=== PATIENT | male | born 1960 | race Caucasian/White ===

== ENCOUNTER 2018-05-04 06:42 | Inpatient (IN) | payer OTHER ==
--- NOTE | 2018-04-23 22:09 | HP ---
HISTORY AND PHYSICAL: DATE OF SURGERY: 05/04/18 DATE OF OFFICE VISIT: 04/21/18 SURGEON: Nan Torres MD * (DICTATED BY SARI HART) PROCEDURE: Left total hip arthroplasty. CHIEF COMPLAINT: Left hip pain. HISTORY OF PRESENT ILLNESS: Mr. Hebert is a 57-year-old gentleman with continued complaints of left hip pain. He has failed conservative management and elected to proceed with a left total hip arthroplasty, which is scheduled for 05/04/18. PAST MEDICAL HISTORY: Hypertension, history of FL in 2009, stent placement, and high cholesterol. PAST SURGICAL HISTORY: Cardiac catheterization with stent placement, tonsillectomy, deviated septum surgery, ORIF of the right ankle, right knee ACL reconstruction, right shoulder surgery, and left total knee arthroplasty. CURRENT MEDICATIONS: 1. Oxycodone 5 mg. 2. Tramadol 50 mg. 3. Metoprolol 200 mg. 4. Vitamin C. 5. Triamterene. 6. Clopidogrel 75 mg daily. 7. Rosuvastatin 10 mg daily. 8. Amitriptyline 50 mg daily. 9. Aspirin 325 daily. 10. Ibuprofen as needed. ALLERGIES: None. FAMILY HISTORY: Coronary artery disease, diabetes, and stomach cancer. SOCIAL HISTORY: He is a 57-year-old gentleman, lives with his . He quit smoking in 2006 but occasionally smokes cigars. He denies use of drugs. He uses occasional alcohol. REVIEW OF SYSTEMS: A complete 14-point of review of systems is reviewed with the patient. It was all negative. He denies history of DVT, PE, hepatitis, HIV or anesthesia problems. PHYSICAL EXAMINATION GENERAL: He is a well developed, well nourished in no acute distress. VITAL SIGNS: He stands 69 inches tall, weighs 229 pounds. His blood pressure is 126/80 and his heart rate is 90. HEENT: Normocephalic, atraumatic. NECK: Supple. No palpable lymph nodes. PULMONARY: Lungs are clear to auscultation bilaterally. CARDIO: Regular rate and rhythm. Strong S1, S2. ABDOMEN: Soft, nontender, and nondistended. NEUROLOGIC: He is alert and oriented x3. Cranial nerves II through XII are intact. MUSCULOSKELETAL: Left lower extremity, the skin is intact. There are no open wounds or abrasions. He walks with an antalgic type gait favoring his left hip. He has decreased internal and external rotation of the left hip. He has 2 + dorsalis pedis pulses. Intact sensation in his lower extremities. Muscle group strengths are intact at 5/5. ASSESSMENT AND PLAN: Mr. Hebert is a 57-year-old gentleman with end-stage osteoarthritis in the left hip. He has failed conservative management and elected to proceed with a left total hip arthroplasty. The surgery is scheduled for 05/04/[address] Torres has discussed the risks and benefits of the surgery at today's visit and all of his questions were answered. He will follow up in 2 weeks after the surgery with Dr. Torres. SARI HART [id number]/[facility] #: [id number] MTDD
[~2018-05-04 06:42] MED LIST: Buffered Lidocaine 0.9% SYRIN* 5 ML/SYR SYRINGE INTRADERM ONE
[2018-05-04] MEDS ORDERED: ceFAZolin 2 GM PREMIX (*) 2 GM/50 ML BAG IVPB ONE (07:20)
[2018-05-04] MEDS ORDERED: Midazolam* 1 MG/ML 5 ML VIAL (5 MG) ONE ×2 (09:05→10:05)
[2018-05-04] MEDS ORDERED: Bupivacaine 0.5% PF 10 ML VIAL INJ ONE (09:06)
[2018-05-04] MEDS ORDERED: fentaNYL* 50 MCG/ML 2 ML VIAL (100 MCG VIAL) ONE ×4 (09:49→14:08)
[2018-05-04] MEDS ORDERED: KETAMINE HCL* 50 MG/ML 10 ML VIAL ONE (09:52)
[2018-05-04] MEDS ORDERED: Phenylephrine IV* 40 MCG/ML 10 ML SYRINGE ONE (10:01)
[2018-05-04] MEDS ORDERED: Dexamethasone IV* 4 MG/ML 1 ML (4 MG) ONE (10:32)
--- NOTE | 2018-05-04 11:32 | RAD ---
HISTORY: LEFT TOTAL HIP REPLACEMENT COMPARISONS: September 26, 2018 VIEWS: 1, portable intraoperative view of the left hip during hip arthroplasty FINDINGS: A single portable intraoperative view of the left hip is performed during hip arthroplasty. There is a left hip arthroplasty with a temporary femoral sizing component. IMPRESSION: LIMITED PORTABLE INTRAOPERATIVE VIEW OF THE LEFT HIP DURING HIP ARTHROPLASTY.
[2018-05-04] MEDS ORDERED: oxyCODONE/Acetamin 5/325 MG* TAB PO PRN ×2 (11:40→12:19)
[2018-05-04] MEDS ORDERED: fentaNYL* 50 MCG/ML 2 ML VIAL (100 MCG VIAL) IV PRN (11:40)
[2018-05-04] MEDS ORDERED: HYDROmorphone INJ* 1 MG/ML CARPUJECT SYRINGE IV PRN (11:40)
[2018-05-04] MEDS ORDERED: HYDROcodone/ACETAMIN 5-325 MG* 1 TAB PO PRN (11:40)
[2018-05-04] MEDS ORDERED: Naloxone* 0.4 MG/ML 1 ML VIAL IV PRN (11:40)
[2018-05-04] MEDS ORDERED: Ondansetron ODT TAB* 4 MG PO PRN (11:40)
[2018-05-04] MEDS ORDERED: Ondansetron INJ* 2 MG/ML VIAL IV PRN ×2 (11:40→12:19)
[2018-05-04] MEDS ORDERED: Bisacodyl SUPP* 10 MG SUPP PR PRN (12:19)
[2018-05-04] MEDS ORDERED: diPHENhydraMINE IV* 50 MG/ML 1 ml VIAL (BENADRYL) IV PRN (12:19)
[2018-05-04] MEDS ORDERED: Acetaminophen TAB* 325 MG PO PRN (12:19)
[2018-05-04] MEDS ORDERED: Magnesium Hydroxide LIQ* 30 ML UDC PO PRN (12:19)
[2018-05-04] MEDS ORDERED: Cyclobenzaprine TAB* 10 MG PO PRN (12:19)
[2018-05-04] MEDS ORDERED: Morphine VIAL* 4 MG/ML VIAL (1 ml vial) IV PRN (12:19)
--- NOTE | 2018-05-04 12:54 | RAD ---
INDICATION: Left total hip replacement COMPARISON: February 24, 2018 TECHNIQUE: An AP view of the pelvis and AP views of the hip in neutral and abducted position were obtained FINDINGS: Bones: There are no acute bony findings. Joint spaces: The right hip joint space is preserved. There is left hip arthroplasty. The prosthesis appears normally seated SI joints/symphysis: The SI joints and symphysis are intact. Other: None IMPRESSION: LEFT HIP ARTHROPLASTY . NO EVIDENCE OF HARDWARE FAILURE.
[2018-05-04] MEDS ORDERED: RANITIDINE HCL 75 MG PO PRN (13:23)
[2018-05-04] MEDS: ceFAZolin 1 GM in Dextrose (*) 1 GM/50 ML BAG IVPB SCH (16:36)
[2018-05-04] MEDS: oxyCODONE/Acetamin 5/325 MG* TAB PO PRN ×2 (16:36→20:43)
[2018-05-04] MEDS ORDERED: Warfarin TAB(*) 6 MG PO ONE (17:00)
[2018-05-04] MEDS ORDERED: Ascorbic Acid TAB* 500 MG PO SCH ×2 (18:00→20:00)
[2018-05-04] MEDS ORDERED: Clopidogrel TAB* 75 MG PO SCH (18:00)
[2018-05-04] MEDS ORDERED: Metoprolol Succinate XL TAB* 100 MG PO SCH ×2 (18:00→20:00)
[2018-05-04] MEDS ORDERED: Amitriptyline TAB* 25 MG PO SCH ×2 (18:00→20:00)
[2018-05-04] MEDS ORDERED: Aspirin TAB* 325 MG PO SCH ×2 (18:00→20:00)
--- NOTE | 2018-05-04 18:11 | CONS ---
CC: Dr. Ibeth Kennedy, Dr. Torres and Dr. Marroquin. CONSULTATION REPORT: DATE OF ADMISSION: 05/04/18. DATE OF CONSULTATION: 05/04/18. PATIENT OF: Dr. Torres. REFERRED TO: Dr. Ibeth Kennedy. PRIMARY CARE PHYSICIAN: Dr. Marroquin. CHIEF COMPLAINT: Left hip pain. REASON FOR CONSULTATION: Medical co-management. HISTORY OF PRESENT ILLNESS: Mr. Hebert is a pleasant 57-year-old gentleman who has past medical histo ry significant for hypertension, coronary artery disease, with a history of IL back in 2009 for which he is status post cardiac catheterization with stent placement. He also has history of high cholest jay, and osteoarthritis, who was admitted earlier today for a left total hip arthroplasty. The charlotte ent has been having issues with osteoarthritis for years. He had multiple orthopedic procedures incl uding right knee ACL reconstruction, as well as ORIF of the right ankle and right shoulder surgery. He has tried multiple conservative measures for management of his osteoarthritis that unfortunately f tam. He was found to be a good candidate for left total knee arthroplasty to be performed by Dr. Torres on a later date. We were asked to see the patient for medical co-management in the immediate p ostoperative period, given his history of hypertension as well as coronary artery disease and previou s IL with stent placement. The patient himself reports doing very well after surgery. He denies any chest pain, palpitation, or shortness of breath. His pain is well controlled and he denies any weak ness or numbness to his lower extremities. He has no complaints during the time of this consultation . PAST MEDICAL HISTORY: As mentioned above significant for: 1. Hypertension. 2. Coronary artery disease with history of IL back in 2009. 3. He also has history of GERD. 4. Hyperlipidemia. 5. Osteoarthritis. PAST SURGICAL HISTORY: Significant for: 1. Cardiac catheterization with stent placement back in 2009, after which he has been chronically on aspirin and Plavix. 2. Tonsillectomy in childhood. 3. Deviated septum surgery. 4. ORIF of the right ankle. 5. Right knee ACL reconstruction. 6. Right shoulder surgery. 7. Left total knee arthroplasty. CURRENT MEDICATIONS: His medications at home includes: 1. Amitriptyline 50 mg p.o. q. p.m. 2. Vitamin C tablets 500 mg p.o. q. p.m. 3. Aspirin 325 mg p.o. q. p.m. 4. Plavix 75 mg p.o. q. p.m. 5. Docusate sodium stool softener 1 mg p.o. b.i.d. as needed for constipation. 6. Ibuprofen 200 mg p.o. daily. 7. Metoprolol succinate extended release 200 mg p.o. q. p.m. 8. Roxicodone 5 mg p.o. daily. 9. Zantac 75 mg p.o. daily. 10. Crestor 10 mg p.o. q. p.m. 11. Ultram 50 mg 1 tablet p.o. q. 6 hours as needed for pain. 12. Dyazide 37.5/25 mg 1 tablet p.o. q. p.m. ALLERGIES: He is allergic to SIMVASTATIN. FAMILY HISTORY: Significant for diabetes and coronary artery disease on both maternal and paternal s ides. He also has a paternal grandmother with history of stomach cancer. SOCIAL HISTORY: The patient is a former smoker, who quit back in 2006, occasionally he smokes cigars . He occasionally consumes alcohol and denies illicit drug use. His health care proxy carrier is hi s and he is a full code. REVIEW OF SYSTEMS: A complete 14-point review of systems was reviewed with the patient and they are all negative with exception of positive findings mentioned in history of present illness. PHYSICAL EXAMINATION: General: He is a pleasant healthy appearing middle aged gentleman, moderately obese, appears comfortable and in no acute distress or discomfort at the time of consultation. Peyton ls revealed blood pressure of 117/80, pulse of 57, temperature of 97.0, respirations 10, and O2 sat o f 99% on room air. HEENT: Head is normocephalic, atraumatic. Sclerae anicteric. PERRLA. EOMs inta ct. Oropharynx is pink and moist. There is no exudate. Neck: Supple. Trachea midline. No cervical adenopathy, thyromegaly or JVD. Lungs: Clear to auscultation bilaterally. Heart: Regular rate an d rhythm. Normal S1 and S2 without rubs, murmurs or gallops. Back: With normal curvature and no CV A tenderness. Abdomen: Soft, round, and obese, nontender and nondistended. There is no hernias, ma sses, or hepatosplenomegaly. Extremities: Without cyanosis, clubbing or edema. There is a well heal ed scar over both and midline bilateral knees, as well as clean, dry dressing over their lateral aspe ct of the left hip. There is no STEVE drain noted. Neurologic: Grossly intact. Handgrip was equal domi aterally. Sensation was intact throughout. Rectal exam deferred at this time. Mueller catheter noted w ith a clean, clear yellow urine in the bag. DIAGNOSTIC STUDIES/LAB DATA: The patient had laboratory workup most recently on 04/21/18,. revealing white count of 6,200, hemoglobin 15.3, hematocrit 46 and platelets of 247. His chemistry panel with sodium of 138, potassium 4.2, chloride 101, CO2 of 30. BUN 16 and creatinine of 0.9, glucose of 117. His LFT's, thyroid study and cholesterol panel were all within normal limits. ACCESSORY DIAGNOSTIC DATA: Postoperative hip x-ray was obtained at the PACU revealing left hip arthr oplasty with no evidence of hardware failure. IMPRESSION: A 57-year-old gentleman with past medical history of significant for hypertension, hyper lipidemia, coronary artery disease status post IL with catheterization and stent placement in 2009., who is postop day #0 is status post left total hip arthroplasty. ASSESSMENT AND PLAN: 1. Status post left hip arthroplasty, management the orthopedic team. I anticipate patient will star t physical therapy as soon as possible, likely tomorrow morning. He will continue PT during his hospi talization and likely to be discharged home with care management plan. He will be anticoagulated wit h Lovenox, at this time and to be bridged to Coumadin for orthopedic steam which daily INR checks. 2. Hypertension. We will continue patient on his home dose of metoprolol and he appears to be in no rmotensive at this time. 3. Hyperlipidemia. We will continue patient on his statin and avoid simvastatin since he had some a dverse reactions to the medicine. 4. Coronary artery disease. We will continue patient on his aspirin, Plavix as prescribed. He curre ntly is very stable and he experienced no symptoms of chest pain or difficulty breathing. 5. Obesity. We will provide supportive care. 6. GERD. We will continue his H2 blockers using Zantac. 7. DVT prophylaxis. Per orthopedic team and he will start Lovenox as subcu injections daily and starr l receive a dose of Coumadin 6 mg tonight, and eventually bridged to Coumadin as an outpatient once h is MRI is stable. Code status: The patient is DrRadha Full melani. I have spent approximately 55 minutes during this consultation with 50 % of this time spent in taking history and performing physical exam. I have discussed the case with my attending Dr. Kennedy who ag erich to the plans and we will followup him up accordingly with the orthopedic team. Thank you for this consultation. SARI JOHNSON [id number]/[facility] #: [id number]
[2018-05-04] MEDS: Docusate CAP* 100 MG PO SCH (20:42)
[2018-05-04] MEDS: Magnesium Hydroxide LIQ* 30 ML UDC PO SCH (20:46)
[2018-05-04] MEDS ORDERED: Atorvastatin* 20 MG TAB PO SCH (21:00)
[2018-05-05] MEDS: ceFAZolin 1 GM in Dextrose (*) 1 GM/50 ML BAG IVPB SCH ×2 (00:30→09:22)
[2018-05-05] MEDS: oxyCODONE TAB* 5 MG TAB PO PRN ×2 (00:31→07:53)
[2018-05-05] MEDS: oxyCODONE/Acetamin 5/325 MG* TAB PO PRN ×2 (04:35→11:27)
[2018-05-05 06:53] LABS: Hematocrit 34 % (42-52); Hemoglobin 11.5 g/dl (14.0-18.0); Mean Platelet Volume 8.4 um3 (7.4-10.4); Platelet Count 187 10^3/ul (150-450)
[2018-05-05 07:02] LABS: INR 1.06 (0.77-1.02)
[2018-05-05 07:12] LABS: EGFR Non-African American 101.1 (>60)
[2018-05-05] MEDS ORDERED: Famotidine TAB* 20 MG PO PRN (07:41)
[2018-05-05] MEDS: Docusate CAP* 100 MG PO SCH (08:27)
[2018-05-05] MEDS: Magnesium Hydroxide LIQ* 30 ML UDC PO SCH (08:27)
[2018-05-05] MEDS ORDERED: Vitamin THERAPEUTIC TAB PO SCH (09:00)
--- NOTE | 2018-05-05 10:28 | PN ---
Progress Note - Progress Note Date of Service: 05/05/18 SOAP: Subjective: []Patient seen at beside. He is feeling well and desires discharge home. He has met his goals with physical therapy and hip pain is very well controlled. Denies chest pain, shortness of breath, dizziness or nausea. Objective: [] Vital Signs Temp 98.3 F 05/05/18 08:01 Pulse 81 05/05/18 08:01 Resp 18 05/05/18 10:12 BP 122/67 05/05/18 08:01 Pulse Ox 99 05/05/18 08:01 Intake & Output 05/04/18 05/05/18 05/05/18 18:59 06:59 18:59 Intake Total 3650 2170 1450 Output Total 200 1375 Balance 3450 795 1450 Weight 226 lb Intake: IV Fluids 3050 970 1010 ABX - CEFAZOLIN 110 LR 3000 970 900 NS 50ML, Cefazolin 2G 50 IVPB 50 ABX - CEFAZOLIN 50 Oral 600 1150 440 Output: Mueller 200 1375 Other: # Bowel Movements 0 Estimated Blood Loss 250 Comment Laboratory Last Values Hgb 11.5 g/dl (14.0-18.0) L 05/05/18 06:19 Hct 34 % (42-52) L 05/05/18 06:19 Plt Count 187 10^3/ul (150-450) 05/05/18 06:19 MPV 8.4 um3 (7.4-10.4) 05/05/18 06:19 INR (Anticoag Therapy) 1.06 (0.77-1.02) H 05/05/18 06:19 Sodium 137 mmol/L (135-145) 05/05/18 06:19 Potassium 3.9 mmol/L (3.5-5.0) 05/05/18 06:19 Chloride 104 mmol/L (101-111) 05/05/18 06:19 Carbon Dioxide 26 mmol/L (22-32) 05/05/18 06:19 Anion Gap 7 mmol/L (2-11) 05/05/18 06:19 BUN 12 mg/dL (6-24) 05/05/18 06:19 Creatinine 0.79 mg/dL (0.67-1.17) 05/05/18 06:19 Est GFR ( Amer) 130.0 (>60) 05/05/18 06:19 Est GFR (Non-Af Amer) 101.1 (>60) 05/05/18 06:19 BUN/Creatinine Ratio 15.2 (8-20) 05/05/18 06:19 Glucose 203 mg/dL (70-100) H 05/05/18 06:19 Calcium 8.5 mg/dL (8.6-10.3) L 05/05/18 06:19 General: Well appearing, NAD LLE: Left hip dressing is clean, dry and intact. Thigh is soft. DF/PF intact. Sensation intact distally. DP 2+. Capillary refill less than two seconds distally. BL LE: Calves supple and nontender without erythema, edema or palpable cords. Assessment: []POD 1 sp left total hip arthroplasty 05/05/[address] Torres Plan: []WBAT PT/OT Restart home plavix and aspirin. Lovenox bridge to coumadin. Coumadin 6 mg today. Likely discharge home today. Will change dressing prior to DC if so
[2018-05-05] MEDS ORDERED: Enoxaparin(*) 30 MG/0.3 ML SYR SUBCUT SCH (12:00)
[2018-05-05 12:19] VITALS: BP 133/77
--- NOTE | 2018-05-05 12:59 | OP ---
DATE OF OPERATION: 05/04/18 - ROOM #342 DATE OF : 60 SURGEON: Nan Torres MD RESEARCH ASSOCIATE PROFESSOR: SARI Donald. Mr. Aguero did help throughout the procedure with preparation of the leg, wound retraction, manipulation of the hip and wound closure. ANESTHESIOLOGIST: Dr. Almendarez. ANESTHESIA: Spinal. PRE-OP DIAGNOSIS: Severe end-stage degenerative osteoarthritis of the left hip joint. POST-OP DIAGNOSIS: Severe end-stage degenerative osteoarthritis of the left hip joint. OPERATIVE PROCEDURE: Left total hip arthroplasty. COMPLICATIONS: None. ESTIMATED BLOOD LOSS: 400 cc. SPECIMEN: Femoral head and acetabular reaming sent to Pathology. HARDWARE USED: This is uncemented Yoyocard total hip arthroplasty hardware. For the cup, a Tritanium cluster hole shell 52D, a single Torx cancellous bone screw, length of 20 mm was used. For the insert, 32D Trident X3 polyethylene insert with a 10-degree inclination. For the femur, an Accolade TMZF size 3 with a 132-degree neck angle. For the head, a Biolox delta ceramic V40 femoral head 32 +0. BRIEF HISTORY/INDICATIONS: Mr. Hebert is a 57-year-old gentleman with years of increasingly severe left hip pain. He failed conservative treatment with anti- inflammatories, physical therapy, and pain pills. Radiographs showed advanced arthritis. Due to continued pain and decreased quality of life, he elected to undergo left total hip arthroplasty. Informed consent was obtained from the patient. He understood the risks of surgery included but were not limited to bleeding, infection, damage to nearby structures, continued pain, need for further surgery, intraoperative fracture, nerve palsy, hardware failure or loosening, dislocation, leg length discrepancy, stroke, heart attack, blood clot , and . He wished to proceed. INTRAOPERATIVE FINDINGS: Intraoperatively, the patient was noted to have full- thickness cartilage loss along the femoral head and acetabulum. Extensive osteophyte formation was noted in the acetabulum. DESCRIPTION OF PROCEDURE: Mr. Hebert was identified in the preanesthesia unit. His left lower extremity was marked as the correct operative side. Informed consent was signed and placed in the chart. The patient was taken to the operating room and placed under spinal anesthesia. A Mueller catheter was placed. The patient was placed in the right lateral decubitus position on the pegboard. All bony prominences were well padded. Left lower extremity was prepped and draped in the usual sterile fashion. Preop time-out was made to correctly identify the patient's side and site. Appropriate perioperative antibiotics were given within 1 hour of incision. A 12-cm posterior hip incision was made with a 10 blade and carried down to the lateral fascial layer. A new 10 blade was used to make an incision in the lateral fascial layer in line with the skin incision. A Charnley retractor was placed. The piriformis and conjoined tendons were identified. These were elevated off the posterolateral femur using electro-cautery. These were tagged with #5 Ethibond. Next, electrocautery was used to make a standard posterolateral capsular flap. This was also tagged with #5 Ethibond. The hip was carefully dislocated. Lesser troch to the center of the femoral head measured 62 mm. Oscillating saw was used to make the appropriate femoral neck cut. Femoral head was carefully removed. After appropriate placement of retractors, the acetabulum was easily visualized. Long-handled knife was used to sharply remove any remaining labrum. The acetabulum was sequentially reamed up to a size 51. A 51 reamer obtained a bleeding subchondral bone bed. A 51 trial had excellent fit and stability. Final implant chosen was a Tritanium cluster hole shell 52D. This was impacted into the acetabulum without difficulty. Excellent stability was obtained. There was appropriate anteversion and abduction angle. A single 20-mm screw was placed in the superoposterior quadrant for extra stability. Trident X3 10- degree polyethylene insert 32D was chosen as the final insert. This was impacted into the acetabulum without difficulty. Stability of the liner was checked and rechecked and noted to be stable. Next, attention was turned to preparation of the proximal femur. A canal finder was used to enter the proximal femur. Proximal femur was sequentially broached up to a size 3. Size 3 had excellent stability and appropriate anteversion. A 32 +0 femoral head trial was placed. Lesser troch to the center of the femoral head measured 62 mm. The hip was reduced and taken through a range of motion. The hip was stable in all positions. The hip was carefully dislocated. All trials were removed. Final implant chosen was an Accolade TMZF size 3 with a 132-degree neck. This was impacted into the femoral canal without difficulty. This stem was stable with appropriate anteversion. Biolox delta ceramic V40 femoral head 32 +0 was chosen as a correct head. This was impacted on to the femoral neck without difficulty. Lesser troch to the center of the femoral head measured 62 mm. The hip was reduced and taken through a range of motion. The hip was stable in all positions. There was appropriate soft tissue tension and leg length. The hip was copiously irrigated with sterile saline. Previously tagged tendons and capsule were reapproximated to the posterolateral femur through 2 trochanteric drill holes. Lateral fascial layer was closed using interrupted #1 Vicryls. The rest of the incision was closed in a layered fashion using 0 and 2-0 Vicryls. Skin was closed using running 3-0 Monocryl. Dermabond was placed over this. Adaptic, 4x4s, and paper tape were used to cover the incision. The patient's anesthesia was reversed without difficulty. He was taken to the PACU in stable condition. Intended weightbearing will be weightbearing as tolerated. Intended DVT prophylaxis will be Coumadin with a Lovenox bridge. [id number]/[facility] #: [id number] BELLA
--- NOTE | 2018-05-05 16:49 | DS ---
AMENDED REPORT NOW INCLUDES COSIGNER DESIGNATION - ESIGNED BEFORE ADJUSTMENTS DATE OF ADMISSION: 05/04/2018. DATE OF DISCHARGE: 05/05/2018. ATTENDING SURGEON: Dr. Nan Torres * (dictated by SARI Danielson). PROCEDURE: Left total hip arthroplasty. HISTORY: The patient is a 57-year-old male with a history of left hip pain. He has failed conservative management and elected to undergo a left total hip arthroplasty. HOSPITAL COURSE: The patient was admitted to [facility] on 2017. He underwent a left total hip arthroplasty without complication. He recovered briefly in the PACU and then was transferred to the Short Stay Surgical Unit in stable condition. Postop day one, he was well-appearing, in no acute distress. His left hip dressing was clean, dry, and intact. Thigh was soft. Dorsiflexion and plantarflexion intact. Sensation intact distally. Dorsalis pedis pulse 2+. Capillary refill less than two seconds distally. Calf supple and nontender without erythema, edema, or palpable cords. The patient will be weightbearing as tolerated. I discussed with Medicine appropriateness of continuing patient's at home antiplatelet therapy which includes Plavix and aspirin while he was also on Coumadin in the hospital. Recommendation was to continue his full strength aspirin 325 mg daily as well as his Coumadin and hold his Plavix until he is done with Coumadin and thereafter when he is done with Coumadin after one month, follow-up with his telegraph and teletype operator in terms of if he should restart his Plavix or continue alone on aspirin. MEDICATIONS: 1. Dyazide 37.5-25 one cap p.o. q.p.m. 2. Amitriptyline 50 mg p.o. q.p.m. 3. Tramadol was discontinued at home. 4. Metoprolol Succinate 200 mg p.o. q.p.m. 5. Docusate 100 mg p.o. b.i.d. prn. 6. Rosuvastatin 10 mg p.o. q.p.m. 7. Aspirin 325 mg p.o. q.p.m. 8. Vitamin C 500 mg p.o. q.p.m. 9. Ranitidine 75 mg p.o. daily. 10. Acetaminophen 650 mg p.o. q.4 hours prn. 11. Docusate 100 mg p.o. b.i.d. 12. Percocet 5/325 one to two tabs every 4 to 6 hours prn, max daily dose of 10 13. Warfarin 2 mg tabs one to three tabs daily. INR to determine dose. 14. Oxycodone 5 mg tablets one to two tabs every 4 hours prn severe pain, max daily dose of 4. DISCHARGE PLAN: Weightbearing as tolerated. Hip precautions. Okay to shower on postop day three. Coumadin dosing May 05 take 6 mg, May 06 recheck INR for further dosing instructions. Okay to stay on aspirin 325 mg and hold Plavix while on the Coumadin. Follow-up with cardiologists in regards to restarting Plavix after Coumadin is complete. Pain control with Percocet 5/325 one to two tabs by mouth every four to six hours as needed for pain, max daily dose of ten tabs per day. Oxycodone 5 mg tabs also prescribed for severe breakthrough pain. Take one to two tabs every four hours as needed for pain, max daily dose four tabs. Follow-up with Dr. Torres in 10 to 14 days. Medications are at [facility] in [place]. SARI SALGADO [id number]/[facility] #: [id number] MTDD
[2018-05-05] MEDS ORDERED: Clopidogrel TAB* 75 MG PO SCH (18:00)
== END 2018-05-05 13:55 | disposition home health service (06) | DRG 470 ==
LOC: AA 06:42 → SSU 14:23
PROVIDERS: ADMIT Orthopaedic Surgery Adult Reconstructive Orthopaedic Surgery; ATTEND Orthopaedic Surgery Adult Reconstructive Orthopaedic Surgery
PROC: 0SRB04A Replacement of Left Hip Joint with Ceramic on Polyethylene Synthetic Substitute, Uncemented, Open Approach (ICD-10-PCS; principal; 2018-05-04 09:00)
DX: M16.12 Unilateral primary osteoarthritis, left hip (principal); I10 Essential (primary) hypertension; E78.00 Pure hypercholesterolemia, unspecified; Z96.652 Presence of left artificial knee joint; I25.10 Atherosclerotic heart disease of native coronary artery without angina pectoris; E78.5 Hyperlipidemia, unspecified; K21.9 Gastro-esophageal reflux disease without esophagitis; M25.752 Osteophyte, left hip; Z79.82 Long term (current) use of aspirin; Z79.01 Long term (current) use of anticoagulants; I25.2 Old myocardial infarction; Z95.5 Presence of coronary angioplasty implant and graft; Z82.49 Family history of ischemic heart disease and other diseases of the circulatory system; Z83.3 Family history of diabetes mellitus; Z80.0 Family history of malignant neoplasm of digestive organs; Z72.0 Tobacco use; Z72.89 Other problems related to lifestyle; Z88.8 Allergy status to other drugs, medicaments and biological substances
CPT/HCPCS: 36415; 80048; 85014; 85018; 85049; 85610; A9270-GY; C1713; C1776; J0690; J1100; J1650; J2250; J3010

== ENCOUNTER 2020-10-09 08:32 | Inpatient (IN) ==
[~2020-10-09 08:32] MED LIST changes: -Buffered Lidocaine 0.9% SYRIN* 5 ML/SYR SYRINGE INTRADERM ONE; +Buffered Lidocaine 1% SYRIN 1 ml INTRADERM ONE; +Dexamethasone IV 4 MG/ML VIAL 1 ml VIAL IV SLOW PU ONE; +Lactated Ringers 1000 ml BAG 1,000 ML IV SCH
[2020-10-09] MEDS ORDERED: Dexamethasone IV 4 MG/ML VIAL 1 ml VIAL ONE (08:56)
[2020-10-09] MEDS ORDERED: Buffered Lidocaine 1% SYRIN 1 ml INTRADERM ONE (08:57)
[2020-10-09] MEDS ORDERED: ceFAZolin 2 GM PREMIX 2 GM/50 ML BAG ONE (08:57)
[2020-10-09] MEDS ORDERED: Midazolam 2 mg/2 ml VIAL 1 mg/ml 2 ml VIAL (2 mg) ONE (09:29)
[2020-10-09] MEDS ORDERED: Ketamine HCL 50 mg/ml 10 ml VIAL (500 MG) ONE (09:29)
[2020-10-09] MEDS ORDERED: Remifentanil 2 MG VIAL ONE ×3 (09:29→15:44)
[2020-10-09] MEDS ORDERED: fentaNYL 250 mcg/5 ml 50 MCG/ML 5 ml VIAL (250 MCG) ONE (09:29)
[2020-10-09] MEDS ORDERED: Rocuronium 50 mg VIAL 10 mg/ml 5 ml VIAL (50 mg) ONE (09:30)
[2020-10-09] MEDS ORDERED: Lidocaine 2% PF 5 ML VIAL ONE (09:41)
[2020-10-09] MEDS ORDERED: Bupivacaine 0.5% SDV PF 30ML VIAL ONE (10:30)
[2020-10-09] MEDS ORDERED: Lidocaine 1% w EPI 1:100,000 MDV 20 ML VIAL ONE (10:30)
[2020-10-09] MEDS ORDERED: Artificial Tear OPHTH.OINT 3.5 GM ONE (10:30)
[2020-10-09] MEDS ORDERED: Bacitracin INJECTION 50,000 UNITS ONE (10:30)
[2020-10-09] MEDS ORDERED: Ondansetron 4 mg VIAL 2 MG/ML 2 ml VIAL IV PRN ×2 (11:03→17:35)
[2020-10-09] MEDS ORDERED: Naloxone 0.4 mg VIAL 0.4 mg/ml 1 ml VIAL IV PRN (11:03)
[2020-10-09] MEDS ORDERED: fentaNYL 100 mcg/2 ml 50 MCG/ML VIAL IV PRN (11:03)
[2020-10-09] MEDS ORDERED: Propofol 10 mg/ml 100 ML BTL 100 ML ONE ×3 (11:09→14:57)
[2020-10-09] MEDS ORDERED: Propofol 10 MG/ML 20 ML BTL ONE ×4 (12:27→16:46)
[2020-10-09] MEDS ORDERED: Phenylephrine 40 mcg/mL 10mL (400mcg) SYRINGE ONE (12:44)
[2020-10-09] MEDS ORDERED: Phenylephrine IV 10 MG/ML 1 ml VIAL ONE (13:06)
[2020-10-09] MEDS ORDERED: HYDROmorphone 1 MG/1 ML SYRINGE ONE ×2 (15:36→18:26)
[2020-10-09] MEDS ORDERED: ceFAZolin VIAL VIAL ONE (16:18)
[2020-10-09] MEDS ORDERED: Acetaminophen IV 1 GM/100ML 100 ML ONE (17:09)
[2020-10-09] MEDS ORDERED: Ondansetron 4 mg VIAL 2 MG/ML 2 ml VIAL ONE (17:16)
[2020-10-09] MEDS ORDERED: Magnesium Hydroxide LIQ 30 ML UDC PO PRN (17:35)
[2020-10-09] MEDS ORDERED: oxyCODONE/Acetamin 5/325 mg TAB PO PRN (17:45)
[2020-10-09] MEDS ORDERED: Lactated Ringers 1000 ml BAG 1,000 ML IV SCH (18:00)
[2020-10-09] MEDS: HYDROmorphone 1 MG/1 ML SYRINGE IV PRN ×5 (18:27→19:04)
[2020-10-09] MEDS ORDERED: CMCS: Rosuvastatin 10 mg TAB (NF) PO SCH (20:00)
[2020-10-09] MEDS ORDERED: DULoxetine DR 30 mg CAP PO SCH (20:00)
[2020-10-09] MEDS: oxyCODONE/Acetamin 5/325 mg TAB PO PRN (20:19)
[2020-10-10] MEDS: oxyCODONE/Acetamin 5/325 mg TAB PO PRN ×2 (07:26→11:31)
[2020-10-10] MEDS ORDERED: Metoprolol Succinate XL 200 mg TAB PO SCH (09:00)
[2020-10-10 11:31] VITALS: BP 133/63
== END 2020-10-10 12:30 | disposition home or self-care (01) | DRG 304 ==
LOC: AA 08:32 → SSU 17:35
PROVIDERS: ADMIT Neurological Surgery; ATTEND Neurological Surgery